=== PATIENT | female | born 1945 | race Caucasian/White ===

== ENCOUNTER 2020-07-02 11:15 | Outpatient (CLI) | payer MEDICARE, OTHER ==
[~2020-07-02 11:15] MED LIST: BUPR-96 PO; BUPR300T52 PO; DIAZ5TAB PO; LEVO137T2 PO; SERT100T PO
[2020-07-02 12:18] LABS: BASOPHILS % (AUTO) 0.4 % (0.0-2.0); EOSINOPHILS % (AUTO) 1.1 % (0.0-6.0); HEMATOCRIT 40 % (33-45); HEMOGLOBIN 12.9 g/dL (11.5-14.8); LYMPHOCYTES # (AUTO) 1.1 /CMM (0.8-4.8); LYMPHOCYTES % (AUTO) 22.7 % (20.0-44.0); MEAN CORPUSCULAR HGB CONC 32 g/dl (31.0-36.0); MEAN CORPUSCULAR VOLUME 90 fL (82-100); MONOCYTES # (AUTO) 0.4 /CMM (0.1-1.30); MONOCYTES % (AUTO) 7.7 % (2.0-12.0); NEUTROPHILS # (AUTO) 3.4 /CMM (1.8-8.9); NEUTROPHILS % (AUTO) 68.1 % (43.0-81.0); PLATELET COUNT (AUTO) 137 /CMM (150-450); RED BLOOD CELL COUNT(AUTO) 4.46 MIL/uL (4.0-5.2)
[2020-07-02 12:54] LABS: ALANINE AMINOTRANSFERASE 20 U/L (12-78); ALBUMIN 3.9 g/dL (3.4-5.0); ALKALINE PHOSPHATASE 80 U/L (46-116); ASPARTATE AMINOTRANSFERASE 16 U/L (15-37); BILIRUBIN,TOTAL 0.3 mg/dL (0.2-1.0); CALCIUM, SERUM 9.1 mg/dL (8.5-10.1); CARBON DIOXIDE 29 mmol/L (21-32); CHLORIDE 104 mmol/L (98-107); GLUCOSE 82 mg/dL (74-106); MAGNESIUM 2.3 mg/dL (1.8-2.4); PHOSPHORUS 3.8 mg/dL (2.5-4.9); POTASSIUM 4.1 mmol/L (3.5-5.1); SODIUM SERUM 141 mmol/L (136-145); TOTAL PROTEIN, SERUM 6.6 g/dL (6.4-8.2); UREA NITROGEN, BLOOD 14 mg/dL (7-18)
[2020-07-02 13:16] LABS: CHOLESTEROL 238 mg/dL (<200); FREE T4 (FREE THYROXINE) 0.97 ng/dL (0.76-1.46); HDL CHOLESTEROL 60 mg/dL (40-60); LDL 150 mg/dL (0-99); THYROID STIMULATING HORMONE 3.018 uIU/mL (0.358-3.74); TRIGLYCERIDES 114 mg/dL (30-150)
[2020-07-02 13:27] LABS: C-REACTIVE PROTEIN < 0.2 mg/dL (0.0-0.9)
[2020-07-03 10:08] LABS: FOLIC ACID > 20.0 ng/mL (>3.0)
== END 2020-07-02 23:59 | disposition home or self-care (01) ==
LOC: MSC 11:15
PROVIDERS: ATTEND Internal Medicine
DX: M25.551 Pain in right hip (principal); M75.100 Unspecified rotator cuff tear or rupture of unspecified shoulder, not specified as traumatic; E03.9 Hypothyroidism, unspecified; F41.8 Other specified anxiety disorders; J40 Bronchitis, not specified as acute or chronic; Z96.641 Presence of right artificial hip joint; Z79.899 Other long term (current) drug therapy
CPT/HCPCS: 36415; 80053; 80061; 82306; 82607; 82746; 83036; 83735; 84100; 84439; 84443; 85025; 85652; 86140; G0463

== ENCOUNTER 2020-10-15 10:33 | Outpatient (CLI) | payer MEDICARE, OTHER | END 2020-10-15 23:59 | disposition home or self-care (01) | LOC: MSC 10:33 | PROVIDERS: ATTEND Internal Medicine | DX: G89.29 Other chronic pain (principal); M54.2 Cervicalgia; M25.551 Pain in right hip; Z86.718 Personal history of other venous thrombosis and embolism; M25.519 Pain in unspecified shoulder; Z96.641 Presence of right artificial hip joint; E03.9 Hypothyroidism, unspecified; Z79.890 Hormone replacement therapy; F41.9 Anxiety disorder, unspecified; Z79.899 Other long term (current) drug therapy; Z87.09 Personal history of other diseases of the respiratory system; F32.9 Major depressive disorder, single episode, unspecified | CPT/HCPCS: 72050; G0463 ==

== ENCOUNTER 2021-01-28 10:10 | Outpatient (CLI) | payer MEDICARE, OTHER ==
[2021-01-28 11:58] LABS: BASOPHILS % (AUTO) 0.5 % (0.0-2.0); EOSINOPHILS % (AUTO) 0.9 % (0.0-6.0); HEMATOCRIT 39 % (33-45); HEMOGLOBIN 12.6 g/dL (11.5-14.8); LYMPHOCYTES % (AUTO) 21.5 % (20.0-44.0); MEAN CORPUSCULAR HGB CONC 32 g/dl (31.0-36.0); MEAN CORPUSCULAR VOLUME 92 fL (82-100); MONOCYTES # (AUTO) 0.3 /CMM (0.1-1.30); MONOCYTES % (AUTO) 7.3 % (2.0-12.0); NEUTROPHILS # (AUTO) 3.3 /CMM (1.8-8.9); NEUTROPHILS % (AUTO) 69.8 % (43.0-81.0); PLATELET COUNT (AUTO) 137 /CMM (150-450); RED BLOOD CELL COUNT(AUTO) 4.25 MIL/uL (4.0-5.2); WHITE BLOOD COUNT (AUTO) 4.8 K/uL (4.3-11.0)
[2021-01-28 12:26] LABS: C-REACTIVE PROTEIN < 0.2 mg/dL (0.0-0.9)
[2021-01-28 12:33] LABS: ALANINE AMINOTRANSFERASE 21 U/L (12-78); ALBUMIN 3.9 g/dL (3.4-5.0); ALKALINE PHOSPHATASE 78 U/L (46-116); ASPARTATE AMINOTRANSFERASE 16 U/L (15-37); BILIRUBIN,TOTAL 0.4 mg/dL (0.2-1.0); CALCIUM, SERUM 9.6 mg/dL (8.5-10.1); CARBON DIOXIDE 29 mmol/L (21-32); CHLORIDE 107 mmol/L (98-107); CREATININE 0.9 mg/dL (0.6-1.3); GLUCOSE 82 mg/dL (74-106); POTASSIUM 4.2 mmol/L (3.5-5.1); SODIUM SERUM 143 mmol/L (136-145); TOTAL PROTEIN, SERUM 6.7 g/dL (6.4-8.2); UREA NITROGEN, BLOOD 14 mg/dL (7-18)
== END 2021-01-28 23:59 | disposition home or self-care (01) ==
LOC: MSC 10:10
PROVIDERS: ATTEND Internal Medicine
DX: R53.83 Other fatigue (principal); J02.9 Acute pharyngitis, unspecified; F41.9 Anxiety disorder, unspecified; F32.9 Major depressive disorder, single episode, unspecified; G89.29 Other chronic pain; M54.2 Cervicalgia; M25.551 Pain in right hip; L29.9 Pruritus, unspecified; M25.519 Pain in unspecified shoulder; Z96.641 Presence of right artificial hip joint; E03.9 Hypothyroidism, unspecified; Z79.890 Hormone replacement therapy; Z79.899 Other long term (current) drug therapy
CPT/HCPCS: 36415; 80053; 85025; 85652; 86140; G0463

== ENCOUNTER 2021-06-10 09:01 | Outpatient (CLI) | payer MEDICARE, OTHER | END 2021-06-10 23:59 | disposition home or self-care (01) | LOC: MSC 09:01 | PROVIDERS: ATTEND Internal Medicine | DX: R21 Rash and other nonspecific skin eruption (principal); L29.9 Pruritus, unspecified; R11.0 Nausea; F32.9 Major depressive disorder, single episode, unspecified; F41.9 Anxiety disorder, unspecified; R53.83 Other fatigue; J02.9 Acute pharyngitis, unspecified; G89.29 Other chronic pain; M54.2 Cervicalgia; M25.551 Pain in right hip; Z96.641 Presence of right artificial hip joint; M25.519 Pain in unspecified shoulder; E03.9 Hypothyroidism, unspecified; Z79.890 Hormone replacement therapy; Z79.899 Other long term (current) drug therapy ==

== ENCOUNTER → 2021-08-26 | Outpatient (CLI) | payer MEDICARE, OTHER | END | disposition home or self-care (01) | LOC: MSC 10:15 | PROVIDERS: ATTEND Internal Medicine | DX: R05.9 Cough, unspecified (principal); J02.9 Acute pharyngitis, unspecified; R21 Rash and other nonspecific skin eruption; F41.8 Other specified anxiety disorders; R53.83 Other fatigue; G89.29 Other chronic pain; M54.2 Cervicalgia; M25.551 Pain in right hip; Z96.641 Presence of right artificial hip joint; M25.519 Pain in unspecified shoulder; E03.9 Hypothyroidism, unspecified; Z79.890 Hormone replacement therapy ==

== ENCOUNTER → 2021-08-27 | Outpatient (CLI) | payer MEDICARE, OTHER | END | disposition home or self-care (01) | LOC: MSC 14:00 | PROVIDERS: ATTEND Internal Medicine | DX: J06.9 Acute upper respiratory infection, unspecified (principal); R21 Rash and other nonspecific skin eruption; F41.8 Other specified anxiety disorders; R53.83 Other fatigue; G89.29 Other chronic pain; M54.2 Cervicalgia; M25.551 Pain in right hip; Z96.641 Presence of right artificial hip joint; M25.519 Pain in unspecified shoulder; E03.9 Hypothyroidism, unspecified; Z79.890 Hormone replacement therapy ==

== ENCOUNTER 2022-05-12 09:47 | Outpatient (CLI) | payer MEDICARE, OTHER | END 2022-05-12 23:59 | disposition home or self-care (01) | LOC: MSC 09:47 | PROVIDERS: ATTEND Internal Medicine | DX: R21 Rash and other nonspecific skin eruption (principal); F41.9 Anxiety disorder, unspecified; Z76.0 Encounter for issue of repeat prescription; F32.9 Major depressive disorder, single episode, unspecified; G89.29 Other chronic pain; M54.2 Cervicalgia; M25.551 Pain in right hip; Z96.641 Presence of right artificial hip joint; M25.519 Pain in unspecified shoulder; E03.9 Hypothyroidism, unspecified; Z79.890 Hormone replacement therapy ==

== ENCOUNTER 2022-05-15 09:52 | Outpatient (CLI) | payer MEDICARE, OTHER ==
[2022-05-15 11:40] LABS: BASOPHILS % (AUTO) 0.4 % (0.0-2.0); EOSINOPHILS % (AUTO) 1.3 % (0.0-6.0); HEMATOCRIT 40 % (33-45); HEMOGLOBIN 13.2 g/dL (11.5-14.8); LYMPHOCYTES # (AUTO) 0.9 K/uL (0.8-4.8); LYMPHOCYTES % (AUTO) 18.8 % (20.0-44.0); MEAN CORPUSCULAR HGB CONC 33 g/dl (31.0-36.0); MEAN CORPUSCULAR VOLUME 88 fL (82-100); MONOCYTES # (AUTO) 0.4 K/uL (0.1-1.30); MONOCYTES % (AUTO) 9.1 % (2.0-12.0); NEUTROPHILS # (AUTO) 3.3 K/uL (1.8-8.9); NEUTROPHILS % (AUTO) 70.4 % (43.0-81.0); PLATELET COUNT (AUTO) 127 K/uL (150-450); RED BLOOD CELL COUNT(AUTO) 4.56 MIL/uL (4.0-5.2); WHITE BLOOD COUNT (AUTO) 4.7 K/uL (4.3-11.0)
[2022-05-15 12:27] LABS: CHOLESTEROL 262 mg/dL (<200); FERRITIN 96 ng/mL (8-388); FREE T4 (FREE THYROXINE) 0.85 ng/dL (0.76-1.46); HDL CHOLESTEROL 65 mg/dL (40-60); LDL 166 mg/dL (0-99); THYROID STIMULATING HORMONE 4.303 uIU/mL (0.358-3.74); TRIGLYCERIDES 132 mg/dL (30-150)
[2022-05-15 12:29] LABS: IRON, SERUM 80 ug/dl (50-175); TOTAL IRON BINDING CAPACITY 339 ug/dl (250-450)
[2022-05-15 12:41] LABS: C-REACTIVE PROTEIN < 0.2 mg/dL (0.0-0.9)
[2022-05-15 12:43] LABS: ALANINE AMINOTRANSFERASE 23 U/L (12-78); ALBUMIN 4.2 g/dL (3.4-5.0); ALKALINE PHOSPHATASE 97 U/L (46-116); ASPARTATE AMINOTRANSFERASE 18 U/L (15-37); BILIRUBIN,TOTAL 0.5 mg/dL (0.2-1.0); CALCIUM, SERUM 8.7 mg/dL (8.5-10.1); CARBON DIOXIDE 34 mmol/L (21-32); CHLORIDE 104 mmol/L (98-107); GLUCOSE 78 mg/dL (74-106); MAGNESIUM 2.3 mg/dL (1.8-2.4); PHOSPHORUS 3.8 mg/dL (2.5-4.9); POTASSIUM 3.9 mmol/L (3.5-5.1); SODIUM SERUM 143 mmol/L (136-145); TOTAL PROTEIN, SERUM 6.9 g/dL (6.4-8.2); UREA NITROGEN, BLOOD 14 mg/dL (7-18)
== END 2022-05-15 23:59 | disposition home or self-care (01) ==
LOC: LAB 09:52
PROVIDERS: ATTEND Internal Medicine
DX: Z00.00 Encounter for general adult medical examination without abnormal findings (principal); L30.9 Dermatitis, unspecified; L29.9 Pruritus, unspecified
CPT/HCPCS: 36415; 80053-TC; 80061-TC; 82306; 82607-TC; 82728-TC; 83540-TC; 83735-TC; 84100-TC; 84439-TC; 84443-TC; 85025-TC; 85652-TC; 86140-TC

== ENCOUNTER 2022-05-19 09:00 | Outpatient (CLI) | payer MEDICARE, OTHER | END 2022-05-19 23:59 | disposition home or self-care (01) | LOC: MSC 09:00 | PROVIDERS: ATTEND Internal Medicine | DX: E03.9 Hypothyroidism, unspecified (principal); Z79.890 Hormone replacement therapy; F41.9 Anxiety disorder, unspecified; Z76.0 Encounter for issue of repeat prescription; D69.6 Thrombocytopenia, unspecified; E78.5 Hyperlipidemia, unspecified; R21 Rash and other nonspecific skin eruption; F32.9 Major depressive disorder, single episode, unspecified; G89.29 Other chronic pain; M54.2 Cervicalgia; M25.551 Pain in right hip; Z96.641 Presence of right artificial hip joint; M25.519 Pain in unspecified shoulder ==

== ENCOUNTER 2022-11-17 09:48 | Outpatient (CLI) | payer MEDICARE, OTHER | END 2022-11-17 23:59 | disposition home or self-care (01) | LOC: MSC 09:48 | PROVIDERS: ATTEND Internal Medicine | DX: N95.1 Menopausal and female climacteric states (principal); L98.9 Disorder of the skin and subcutaneous tissue, unspecified; M25.551 Pain in right hip; Z96.641 Presence of right artificial hip joint; F41.9 Anxiety disorder, unspecified; Z79.890 Hormone replacement therapy; E78.5 Hyperlipidemia, unspecified; D69.6 Thrombocytopenia, unspecified; R21 Rash and other nonspecific skin eruption; F32.9 Major depressive disorder, single episode, unspecified; G89.29 Other chronic pain; M54.2 Cervicalgia; M25.519 Pain in unspecified shoulder ==

== ENCOUNTER 2022-11-27 10:54 | Outpatient (CLI) | payer MEDICARE, OTHER | END 2022-11-27 23:59 | disposition home or self-care (01) | LOC: XR 10:54 | PROVIDERS: ATTEND Internal Medicine | DX: M16.11 Unilateral primary osteoarthritis, right hip (principal) | CPT/HCPCS: 73502 ==

== ENCOUNTER → 2022-12-04 | Outpatient (CLI) | payer MEDICARE, OTHER | END | disposition home or self-care (01) | LOC: MSC 14:15 | PROVIDERS: ATTEND Internal Medicine | DX: M25.551 Pain in right hip (principal); Z96.641 Presence of right artificial hip joint; N95.1 Menopausal and female climacteric states; L98.9 Disorder of the skin and subcutaneous tissue, unspecified; F41.9 Anxiety disorder, unspecified; E03.9 Hypothyroidism, unspecified; Z79.890 Hormone replacement therapy; E78.5 Hyperlipidemia, unspecified; R21 Rash and other nonspecific skin eruption; F32.9 Major depressive disorder, single episode, unspecified; G89.29 Other chronic pain; M54.2 Cervicalgia; M25.519 Pain in unspecified shoulder ==

== ENCOUNTER 2022-12-09 09:11 | Outpatient (CLI) | payer MEDICARE, OTHER ==
[2022-12-09 09:44] LABS: BILIRUBIN,URINE NEGATIVE (NEGATIVE); COLOR,URINE YELLOW (YELLOW); LEUKOCYTE ESTERASE ,URINE 1+ (NEGATIVE); NITRITE, URINE NEGATIVE (NEGATIVE); PROTEIN,URINE NEGATIVE (NEGATIVE); UGLUCOSE NEGATIVE (NEGATIVE); UROBILINOGEN,URINE 0.2 EU/dL (0.2)
[2022-12-09 09:48] LABS: BASOPHILS % (AUTO) 0.7 % (0.0-2.0); EOSINOPHILS % (AUTO) 0.8 % (0.0-6.0); HEMATOCRIT 41 % (33-45); LYMPHOCYTES # (AUTO) 0.8 K/uL (0.8-4.8); LYMPHOCYTES % (AUTO) 18.2 % (20.0-44.0); MEAN CORPUSCULAR HGB CONC 32 g/dl (31.0-36.0); MEAN CORPUSCULAR VOLUME 89 fL (82-100); MONOCYTES # (AUTO) 0.3 K/uL (0.1-1.30); MONOCYTES % (AUTO) 7.4 % (2.0-12.0); NEUTROPHILS # (AUTO) 3.4 K/uL (1.8-8.9); NEUTROPHILS % (AUTO) 72.9 % (43.0-81.0); PLATELET COUNT (AUTO) 141 K/uL (150-450); RED BLOOD CELL COUNT(AUTO) 4.63 MIL/uL (4.0-5.2); WHITE BLOOD COUNT (AUTO) 4.6 K/uL (4.3-11.0)
[2022-12-09 10:09] LABS: BACTERIA,URINE None seen /HPF (None Seen); RBC,URINE 0-2 /HPF (0-2)
[2022-12-09 10:10] LABS: SQUAMOUS EPITHELIAL CELL,UR 0-2 /HPF (None Seen)
[2022-12-09 10:16] LABS: URINE TOTAL PROTEIN 11.4 mg/dL (0-11.9)
[2022-12-09 10:18] LABS: CHOLESTEROL 259 mg/dL (<200); HDL CHOLESTEROL 75 mg/dL (40-60); LDL 171 mg/dL (0-99); THYROID STIMULATING HORMONE 2.856 uIU/mL (0.358-3.74); TRIGLYCERIDES 81 mg/dL (30-150)
[2022-12-09 10:31] LABS: ALANINE AMINOTRANSFERASE 22 U/L (12-78); ALBUMIN 4.3 g/dL (3.4-5.0); ALKALINE PHOSPHATASE 105 U/L (46-116); ASPARTATE AMINOTRANSFERASE 19 U/L (15-37); BILIRUBIN,TOTAL 0.4 mg/dL (0.2-1.0); CALCIUM, SERUM 9.1 mg/dL (8.5-10.1); CARBON DIOXIDE 30 mmol/L (21-32); CHLORIDE 100 mmol/L (98-107); CREATININE 0.9 mg/dL (0.6-1.3); GLUCOSE 75 mg/dL (74-106); MAGNESIUM 2.1 mg/dL (1.8-2.4); PHOSPHORUS 4.2 mg/dL (2.5-4.9); POTASSIUM 3.6 mmol/L (3.5-5.1); SODIUM SERUM 137 mmol/L (136-145); UREA NITROGEN, BLOOD 15 mg/dL (7-18)
[2022-12-09 10:46] LABS: C-REACTIVE PROTEIN < 0.2 mg/dL (0.0-0.9)
[2022-12-10 14:07] LABS: FOLLICLE STIMULATION HORMONE 40.4 mIU/mL (.); LUTEINIZING HORMONE 27.1 mIU/mL (.); PROGESTERONE 0.1 ng/mL (.); PROLACTIN 7.2 ng/mL (4.8-23.3)
== END 2022-12-09 23:59 | disposition home or self-care (01) ==
LOC: LAB 09:11
PROVIDERS: ATTEND Internal Medicine
DX: E78.5 Hyperlipidemia, unspecified (principal); R53.83 Other fatigue; R23.2 Flushing; T78.40XA Allergy, unspecified, initial encounter; X58.XXXA Exposure to other specified factors, initial encounter
CPT/HCPCS: 36415; 80053-TC; 80061-TC; 81001; 82306; 82607-TC; 83001; 83002; 83735-TC; 84100-TC; 84144; 84146; 84155-TC; 84403; 84439-TC; 84443-TC; 84481; 85025-TC; 85652-TC; 86140-TC; 87086-TC

== ENCOUNTER → 2022-12-17 | Outpatient (CLI) | payer MEDICARE, OTHER | END | disposition home or self-care (01) | LOC: MSC 15:00 | PROVIDERS: ATTEND Internal Medicine | DX: E78.5 Hyperlipidemia, unspecified (principal); N95.1 Menopausal and female climacteric states; L98.9 Disorder of the skin and subcutaneous tissue, unspecified; F41.9 Anxiety disorder, unspecified; M25.551 Pain in right hip; Z96.641 Presence of right artificial hip joint; E03.9 Hypothyroidism, unspecified; Z79.890 Hormone replacement therapy; R21 Rash and other nonspecific skin eruption; F32.9 Major depressive disorder, single episode, unspecified; G89.29 Other chronic pain; M54.2 Cervicalgia; M25.519 Pain in unspecified shoulder ==

== ENCOUNTER 2023-02-16 09:25 | Outpatient (CLI) | payer MEDICARE, OTHER | END 2023-02-16 23:59 | disposition home or self-care (01) | LOC: MSC 09:25 | PROVIDERS: ATTEND Internal Medicine | DX: M85.80 Other specified disorders of bone density and structure, unspecified site (principal); F41.9 Anxiety disorder, unspecified; E78.5 Hyperlipidemia, unspecified; L98.9 Disorder of the skin and subcutaneous tissue, unspecified; M25.551 Pain in right hip; Z96.641 Presence of right artificial hip joint; E03.9 Hypothyroidism, unspecified; Z79.890 Hormone replacement therapy; R21 Rash and other nonspecific skin eruption; F32.9 Major depressive disorder, single episode, unspecified; G89.29 Other chronic pain; M54.2 Cervicalgia ==

== ENCOUNTER 2025-06-29 11:32 | Outpatient (CLI) | payer MEDICARE, OTHER ==
[2025-06-29 13:03] LABS: LDL 80 mg/dL (0-99)
== END 2025-06-29 23:59 | disposition home or self-care (01) ==
LOC: MSC 11:32
PROVIDERS: ATTEND Internal Medicine
DX: R51.9 Headache, unspecified (principal); R41.840 Attention and concentration deficit; R00.2 Palpitations; J06.9 Acute upper respiratory infection, unspecified; M25.551 Pain in right hip; Z96.641 Presence of right artificial hip joint; E78.5 Hyperlipidemia, unspecified; F41.9 Anxiety disorder, unspecified; G89.29 Other chronic pain; M54.2 Cervicalgia; E03.9 Hypothyroidism, unspecified; M85.80 Other specified disorders of bone density and structure, unspecified site; D69.6 Thrombocytopenia, unspecified; F32.9 Major depressive disorder, single episode, unspecified; Z87.01 Personal history of pneumonia (recurrent); Z86.718 Personal history of other venous thrombosis and embolism
CPT/HCPCS: 80061; 36415; G0463